=== PATIENT | female | born 1975 | race Caucasian/White ===

== ENCOUNTER → 2016-09-05 | Outpatient (CLI) | payer OTHER | LOC: MC.RAD 08:00 | DX: Z12.31 Encounter for screening mammogram for malignant neoplasm of breast (principal) ==

== ENCOUNTER → 2017-12-18 | Outpatient (CLI) | payer OTHER | LOC: MC.RAD 11:20 | DX: Z12.31 Encounter for screening mammogram for malignant neoplasm of breast (principal) ==

== ENCOUNTER → 2018-12-18 | Outpatient (CLI) | payer OTHER | LOC: MC.RAD 07:06 | DX: Z12.31 Encounter for screening mammogram for malignant neoplasm of breast (principal) ==

== ENCOUNTER → 2020-01-19 | Outpatient (CLI) | payer BC | LOC: MC.RAD 12-23 11:00 | DX: Z12.31 Encounter for screening mammogram for malignant neoplasm of breast (principal) ==

== ENCOUNTER → 2021-05-25 | Outpatient (CLI) | payer BC | LOC: MC.RAD 06:48 | DX: Z12.31 Encounter for screening mammogram for malignant neoplasm of breast (principal) ==

== ENCOUNTER 2021-09-23 07:29 | Day surgery (SDC) | payer BC ==
[~2021-09-23] VITALS: Ht 167.6 cm; Wt 72.6 kg
[2021-09-23 08:08] VITALS: BP 126/86; PULSE 59; TEMP 97.8
[2021-09-23] MEDS ORDERED: K-TAB20 PO (08:11)
[2021-09-23] MEDS ORDERED: ESTRACE2 MG PO (08:11)
[2021-09-23] MEDS ORDERED: DITROPAN XL10 MG PO (08:12)
[2021-09-23] MEDS ORDERED: BUSPIRONE HCL7.5 MG PO (08:12)
[2021-09-23] MEDS ORDERED: LEXAPRO20 MG PO (08:12)
[2021-09-23] MEDS ORDERED: EUTHYROX88 MCG PO (08:13)
[2021-09-23] MEDS ORDERED: REQUIP 1MG T1 MG/TAB PO (08:13)
--- NOTE | 2021-09-23 08:40 | NUR ---
The patient reported that her stool is brown and liquidy after the prep. She also told Dr. Alanis who wants to look at the patient's stool prior to taking her back. She observed the patient's stool and stated that the prep was not complete enough and she would need to be rescheduled. The patient's IV to her right hand was remvoed and a pressure dressing was applied to the site. The patient is going to get dressed and leave with her .
== END 2021-09-23 08:50 | disposition home or self-care (01) ==
LOC: SDCO 07:29
DX: Z12.11 Encounter for screening for malignant neoplasm of colon (principal); Z53.8 Procedure and treatment not carried out for other reasons
CPT/HCPCS: J2704; J7120

== ENCOUNTER 2022-05-24 07:59 | Day surgery (SDC) | payer BC ==
[~2022-05-24] VITALS: Ht 167.6 cm; Wt 73.6 kg
[~2022-05-24 07:59] MED LIST: BUSPIRONE HCL7.5 MG PO; DITROPAN XL10 MG PO; ESTRACE2 MG PO; EUTHYROX88 MCG PO; K-TAB20 PO; LEXAPRO20 MG PO; REQUIP 1MG T1 MG/TAB PO
[2022-05-24] MEDS ORDERED: LEXAPRO 10MG10 MG PO (08:32)
[2022-05-24 09:11] VITALS: BP 138/80; PULSE 70; TEMP 97.3
[2022-05-24 09:45] VITALS: BP 98/64; PULSE 64; TEMP 98.7
[2022-05-24 10:00] VITALS: BP 108/69; PULSE 60
--- NOTE | 2022-05-24 11:18 | NUR ---
0945 - 1020: PT TO RECOVERY BAY FROM ENDO [facility]GA S/P SCREENING COLONOSCOPY PLACED ON MONITOR, VSS ON RA. A&O, NAD, STEADY GAIT WITH 2 PERSON ASSIST TO CHAIR FROM CART. RECEIVED REPORT AND ASSUMED CARE OF PT FROM CLAUDIA SEN /RIDE AT BEDSIDE PROVIDED SODA AND MUFFIN PER REQUEST, TOLERATING WELL. IN ROOM TO SPEAK WITH PT/FAMILY AFTER PROCEEDURE PT HAS REMAINED A&O, NAD, VSS ON RA, TOLERATING PO, IS WITHOUT SIGNIFICANT COMPLAINT, WITH STEADY GAIT THRU OUT ENDO STAY IV D/C'D. D/C INSTRUCTIONS, ANY FOLLOW UP REVIEWED AND HANDED TO PT. ALL QUESTIONS AND CONCERNS ADDRESSED TO PT SATISFACTION. TAKEN TO EXIT VIA W/C WITH ALL BELONGINGS AND PAPERWORK IN HAND, ASSISTED INTO PASSENGER SEAT OF POV. TO DRIVE HOME.
== END 2022-05-24 10:20 | disposition home or self-care (01) ==
LOC: SDCO 07:59
DX: Z12.11 Encounter for screening for malignant neoplasm of colon (principal); K64.0 First degree hemorrhoids
CPT/HCPCS: J2704; J7120

== ENCOUNTER → 2023-08-16 | Outpatient (CLI) | payer BC ==
[~2023-08-16] MED LIST changes: +LEXAPRO 10MG10 MG PO
== END ==
LOC: MC.RAD 12:44
DX: Z12.31 Encounter for screening mammogram for malignant neoplasm of breast (principal)